=== PATIENT | male | born 1995 | race Caucasian/White ===

== ENCOUNTER 2017-01-24 00:06 | Emergency (ER) | payer OTHER ==
[~2017-01-24] VITALS: Ht 167.6 cm; Wt 60.5 kg
[~2017-01-24 00:06] MED LIST: MED FOR ADHD; [UNRECOGNIZED DRUG - OTHER]
[2017-01-24 00:23] VITALS: BP 119/61
== END 2017-01-24 02:30 | disposition left against medical advice (07) ==
LOC: EMS 00:07
DX: R20.0 Anesthesia of skin (principal); Z53.21 Procedure and treatment not carried out due to patient leaving prior to being seen by health care provider